=== PATIENT | male | born 1955 | race Caucasian/White ===

== ENCOUNTER 2023-11-10 06:30 | Inpatient (IN) | payer OTHER ==
[~2023-11-10] VITALS: Ht 177.8 cm; Wt 81.4 kg
[2023-11-10] VITALS (9 sets, daily range): BP systolic 132–150; PULSE 92–100; RESP 16–20; TEMP 96.7–98.5; O2SAT 94–99
[2023-11-10 07:12] LABS: BASOPHILS % (AUTO) 0.1 % (0.0-2.0); EOSINOPHILS % (AUTO) 0.2 % (0.0-4.0); HEMATOCRIT 40.1 % (36-54); HEMOGLOBIN 13.6 g/dL (14.0-18.0); LYMPHOCYTES # (AUTO) 0.2 K/uL (1.0-5.5); LYMPHOCYTES % (AUTO) 1.2 % (20.5-51.5); MEAN CORPUSCULAR HEMOGLOBIN 32 pg (27-31); MEAN CORPUSCULAR HGB CONC 34 % (32-36); MEAN CORPUSCULAR VOLUME 94 fL (79.0-98.0); MONOCYTES # (AUTO) 0.4 K/uL (0.0-1.0); MONOCYTES % (AUTO) 2.3 % (1.7-9.3); NEUTROPHILS # (AUTO) 16.2 K/uL (1.8-7.7); NEUTROPHILS % (AUTO) 96.2 % (40.0-70.0); PLATELET COUNT (AUTO) 119 K/uL (130-430); RED BLOOD CELL COUNT(AUTO) 4.28 MIL/uL (4.2-6.2); RED CELL DISTRIBUTION WIDTH 15.6 % (9.0-15.0); WHITE BLOOD COUNT (AUTO) 16.8 K/uL (4.8-10.8)
[2023-11-10 07:23] LABS: PROTHROMBIN TIME 10.4 SECS (9.5-12.5)
[2023-11-10 07:45] LABS: ALANINE AMINOTRANSFERASE 91 U/L (12-78); ANION GAP 13 (5-15); ASPARTATE AMINOTRANSFERASE 72 U/L (10-37); CALCIUM 9.2 mg/dL (8.4-11.0); CARBON DIOXIDE 22 mmol/L (23-29); CHLORIDE 103 mmol/L (98-107); CREATININE 1.31 mg/dL (0.55-1.30); GLUCOSE 165 mg/dL (74-106); POTASSIUM 3.4 mmol/L (3.5-5.1); SODIUM SERUM 138 mmol/L (136-145); TOTAL BILIRUBIN 0.9 mg/dL (0.0-1.0); TOTAL PROTEIN, SERUM 7.1 g/dL (6.4-8.3); UREA NITROGEN, BLOOD 36 mg/dL (8-21)
[2023-11-10 07:46] LABS: GFR AFRICAN AMERICAN 70 mL/min (>90); GFR NON AFRICAN-AMERICAN 57 mL/min (>90)
[2023-11-10 07:52] LABS: BILIRUBIN,DIRECT 0.3 mg/dL (0.0-0.3); CREATINE KINASE, TOTAL 30 U/L (39-308); FREE T4 (FREE THYROXINE) 0.5 ng/dl (0.8-1.5); LIPASE 223 U/L (16-77); THYROID STIMULATING HORMONE 14.51 uIu/mL (0.36-3.74)
[2023-11-10 08:09] LABS: ACETONE, SERUM NEGATIVE (NEGATIVE)
[2023-11-10] MEDS: MAG HYDROX/AL HYDROX/SIMETH 30 ML, DICYCLOMINE HCL 20 MG, LIDOCAINE VISCOUS 2% 15ML (PO... PO ONE (08:19)
[2023-11-10] MEDS ORDERED: cefTRIAXone 1 GM VIAL ONE (08:25)
[2023-11-10] MEDS: cefTRIAXone 1 GM in D5W 50 ML IV ONE (08:37)
[2023-11-10 09:00] LABS: BILIRUBIN,URINE NEGATIVE (NEGATIVE); CLARITY/URINE CLEAR (CLEAR); COLOR,URINE YELLOW (YELLOW); GLUCOSE,URINE NEGATIVE (NEGATIVE); KETONES,URINE NEGATIVE (NEGATIVE); LEUKOCYTE ESTERASE ,URINE NEGATIVE (NEGATIVE); NITRITE, URINE NEGATIVE (NEGATIVE); PROTEIN URINE NEGATIVE (NEGATIVE); UROBILINOGEN,URINE 0.2 (0.2-1.0)
[2023-11-10 09:01] LABS: BLOOD, URINE TRACE (NEGATIVE)
[2023-11-10 09:10] LABS: BACTERIA,URINE None Seen /HPF (None Seen); WBC,URINE 0-3 /HPF (0-3)
[2023-11-10] MEDS: NACL 0.9% 1,000 ML IV ONE (10:08)
[2023-11-10] MEDS ORDERED: ACETAMINOPHEN 325 MG TABLET PO PRN (10:15)
[2023-11-10] MEDS: MORPHINE 2 MG/ML INJ. SYRINGE IVP ONE (10:48)
[2023-11-10] MEDS: ALBUTEROL SULFATE 0.083% 2.5 MG/3 ML VIAL.NEB INH SCH (11:00)
[2023-11-10] MEDS: IPRATROPIUM BROM 0.5 MG/2.5 ML VIAL.NEB (ATROVENT) INH SCH (11:00)
[2023-11-10] MEDS ORDERED: NOR10 PO (11:43)
[2023-11-10] MEDS ORDERED: DEC4 PO (11:43)
[2023-11-10] MEDS ORDERED: ONDA-8 TL (11:43)
[2023-11-10] MEDS: MORPHINE 4 MG INJ. 4 MG/ML VIAL IVP PRN (13:14)
[2023-11-10] MEDS: D5/0.45 NS 1,000 ML IV ONE (13:23)
[2023-11-10] MEDS: PIPERACILLIN/TAZO 2.25G/DEX-IS 50 ML IV SCH (13:23)
[2023-11-10] MEDS: NACL 0.9% 1,000 ML IV SCH (19:38)
[2023-11-10] MEDS: HYDROcodone/ACETAMIN 5-325 MG TAB (NORCO/ VICODIN) PO PRN (22:10)
[2023-11-11] VITALS (12 sets, daily range): BP systolic 128–150; PULSE 94–101; RESP 15–18; TEMP 97.2–98.9; O2SAT 94–99
[2023-11-11 06:20] LABS: BASOPHILS % (AUTO) 0.1 % (0.0-2.0); EOSINOPHILS % (AUTO) 0.7 % (0.0-4.0); HEMATOCRIT 39.6 % (36-54); HEMOGLOBIN 13.3 g/dL (14.0-18.0); LYMPHOCYTES # (AUTO) 0.1 K/uL (1.0-5.5); LYMPHOCYTES % (AUTO) 1.6 % (20.5-51.5); MEAN CORPUSCULAR HEMOGLOBIN 32 pg (27-31); MEAN CORPUSCULAR HGB CONC 34 % (32-36); MEAN CORPUSCULAR VOLUME 95 fL (79.0-98.0); MONOCYTES # (AUTO) 0.3 K/uL (0.0-1.0); MONOCYTES % (AUTO) 5.4 % (1.7-9.3); NEUTROPHILS # (AUTO) 5.3 K/uL (1.8-7.7); NEUTROPHILS % (AUTO) 92.2 % (40.0-70.0); PLATELET COUNT (AUTO) 61 K/uL (130-430); RED BLOOD CELL COUNT(AUTO) 4.17 MIL/uL (4.2-6.2); WHITE BLOOD COUNT (AUTO) 5.8 K/uL (4.8-10.8)
[2023-11-11 06:37] LABS: ALBUMIN 2.6 g/dL (3.4-4.8); CALCIUM 8.4 mg/dL (8.4-11.0); CREATININE 1.3 mg/dL (0.55-1.30); POTASSIUM 3.6 mmol/L (3.5-5.1); TOTAL PROTEIN, SERUM 6.3 g/dL (6.4-8.3)
[2023-11-11] MEDS: cefTRIAXone 1 GM in D5W 50 ML IV SCH (10:05)
[2023-11-11] MEDS: PANTOPRAZOLE SODIUM 40 MG/VIAL (PROTONIX) IVP SCH (10:08)
[2023-11-11] MEDS: metroNIDAZOLE 500 mg/NS 100 ML IV SCH (13:53)
[2023-11-12] VITALS (11 sets, daily range): BP systolic 114–135; PULSE 90–101; RESP 16–18; TEMP 97.2–98.5; O2SAT 95–98
[2023-11-12 13:30] LABS: HEMATOCRIT 42.9 % (36-54); HEMOGLOBIN 14.4 g/dL (14.0-18.0); MEAN CORPUSCULAR HEMOGLOBIN 32 pg (27-31); MEAN CORPUSCULAR HGB CONC 34 % (32-36); MEAN CORPUSCULAR VOLUME 95 fL (79.0-98.0); RED BLOOD CELL COUNT(AUTO) 4.52 MIL/uL (4.2-6.2); RED CELL DISTRIBUTION WIDTH 15.8 % (9.0-15.0); WHITE BLOOD COUNT (AUTO) 3.8 K/uL (4.8-10.8)
[2023-11-12 13:49] LABS: ALBUMIN 2.5 g/dL (3.4-4.8); CALCIUM 8.5 mg/dL (8.4-11.0); CREATININE 1.52 mg/dL (0.55-1.30); POTASSIUM 3.5 mmol/L (3.5-5.1); TOTAL BILIRUBIN 1.3 mg/dL (0.0-1.0); TOTAL PROTEIN, SERUM 6.6 g/dL (6.4-8.3)
[2023-11-12 14:14] LABS: PLATELET COUNT (AUTO) 26 K/uL (130-430)
[2023-11-12 14:18] LABS: ATYPICAL LYMPHOCYTES % 1 % (0-0); BAND % (MANUAL) 20 % (0-6); BASOPHILS % (MANUAL) 0 % (0-2); EOSINOPHILS % (MANUAL) 0 % (0-7); LYMPHOCYTES % (MANUAL) 7 % (20-46); MONOCYTES % (MANUAL) 6 % (0-11)
[2023-11-12 14:19] LABS: METAMYELOCYTES % 2 % (0-0); PLATELET ESTIMATE DECREASED (ADEQUATE)
[2023-11-12] MEDS: ONDANSETRON HCL 4 MG/2 ML VIAL IVP PRN (23:27)
[2023-11-13] VITALS (22 sets, daily range): BP systolic 76–138; PULSE 85–121; RESP 12–20; TEMP 97.5–98.7; O2SAT 91–100
[2023-11-13 07:48] LABS: ALBUMIN 2.1 g/dL (3.4-4.8); CALCIUM 8.2 mg/dL (8.4-11.0); CREATININE 1.47 mg/dL (0.55-1.30); PHOSPHORUS 3.6 mg/dL (2.7-4.5); POTASSIUM 3.9 mmol/L (3.5-5.1); TOTAL BILIRUBIN 2.4 mg/dL (0.0-1.0); TOTAL PROTEIN, SERUM 5.3 g/dL (6.4-8.3)
[2023-11-13 07:49] LABS: BASOPHILS % (AUTO) 0.3 % (0.0-2.0); EOSINOPHILS % (AUTO) 0.2 % (0.0-4.0); HEMATOCRIT 44.8 % (36-54); LYMPHOCYTES # (AUTO) 0.2 K/uL (1.0-5.5); LYMPHOCYTES % (AUTO) 5.4 % (20.5-51.5); MEAN CORPUSCULAR HEMOGLOBIN 32 pg (27-31); MEAN CORPUSCULAR HGB CONC 34 % (32-36); MEAN CORPUSCULAR VOLUME 95 fL (79.0-98.0); MONOCYTES # (AUTO) 0.2 K/uL (0.0-1.0); MONOCYTES % (AUTO) 6.1 % (1.7-9.3); RED BLOOD CELL COUNT(AUTO) 4.71 MIL/uL (4.2-6.2); RED CELL DISTRIBUTION WIDTH 15.7 % (9.0-15.0); WHITE BLOOD COUNT (AUTO) 3.5 K/uL (4.8-10.8)
[2023-11-13 08:37] LABS: PLATELET COUNT (AUTO) 12 K/uL (130-430)
[2023-11-13] MEDS: METHYLPREDNISOLONE SOD SUCC 40 MG/ML VIAL IVP SCH (17:21)
[2023-11-13] MEDS: SUCRALFATE 1 GM TABLET PO SCH (17:21)
[2023-11-13] MEDS ORDERED: NOREPINEPHRINE BITARTRATE 4 MG in D5W 246 ML IV PRN ×2 (22:00→22:15)
[2023-11-13] MEDS ORDERED: PIPERACILLIN/TAZOBACTAM 3.375 GM/VIAL (ZOSYN) IV ONE (23:04)
[2023-11-13] MEDS: PIPERACILLIN/TAZO 3.375 GM in D5W 50 ML IV SCH (23:09)
[2023-11-13] MEDS: NACL 0.9% 1,000 ML IV ONE (23:09)
[2023-11-14] VITALS (27 sets, daily range): BP systolic 82–153; PULSE 81–108; RESP 11–19; TEMP 96.9–98.6; O2SAT 90–100
[2023-11-14] MEDS: ACETAMINOPHEN 325 MG TABLET PO PRN (00:15)
[2023-11-14 05:10] LABS: BASOPHILS % (AUTO) 0.6 % (0.0-2.0); EOSINOPHILS % (AUTO) 0.1 % (0.0-4.0); HEMATOCRIT 39.5 % (36-54); HEMOGLOBIN 13.3 g/dL (14.0-18.0); LYMPHOCYTES # (AUTO) 0.4 K/uL (1.0-5.5); LYMPHOCYTES % (AUTO) 12.5 % (20.5-51.5); MEAN CORPUSCULAR HEMOGLOBIN 32 pg (27-31); MEAN CORPUSCULAR HGB CONC 34 % (32-36); MEAN CORPUSCULAR VOLUME 95 fL (79.0-98.0); MONOCYTES # (AUTO) 0.2 K/uL (0.0-1.0); MONOCYTES % (AUTO) 4.7 % (1.7-9.3); NEUTROPHILS # (AUTO) 2.7 K/uL (1.8-7.7); NEUTROPHILS % (AUTO) 82.1 % (40.0-70.0); RED BLOOD CELL COUNT(AUTO) 4.14 MIL/uL (4.2-6.2); RED CELL DISTRIBUTION WIDTH 16.1 % (9.0-15.0); WHITE BLOOD COUNT (AUTO) 3.3 K/uL (4.8-10.8)
[2023-11-14 05:19] LABS: INR 1.2 (0.80-1.20); PROTHROMBIN TIME 12.7 SECS (9.5-12.5)
[2023-11-14 05:53] LABS: ALBUMIN 1.8 g/dL (3.4-4.8); CALCIUM 7.8 mg/dL (8.4-11.0); CREATININE 3.41 mg/dL (0.55-1.30); POTASSIUM 4.1 mmol/L (3.5-5.1); TOTAL BILIRUBIN 2.8 mg/dL (0.0-1.0); TOTAL PROTEIN, SERUM 4.6 g/dL (6.4-8.3)
[2023-11-14 06:25] LABS: PLATELET COUNT (AUTO) 19 K/uL (130-430)
[2023-11-14] MEDS: IPRATROPIUM/ALBUTEROL SULFATE 3 ML AMPUL.NEB (DUONEB) INH ONE (11:41)
[2023-11-14] MEDS: IPRATROPIUM/ALBUTEROL SULFATE 3 ML AMPUL.NEB (DUONEB) INH SCH (15:00)
[2023-11-14] MEDS: PHYTONADIONE 10 MG/ML AMP IM ONE (19:24)
[2023-11-15] VITALS (13 sets, daily range): BP systolic 86–132; PULSE 97–128; RESP 12–30; TEMP 97.1–97.4; O2SAT 84–99
[2023-11-15 06:39] LABS: ALBUMIN 1.9 g/dL (3.4-4.8); BILIRUBIN,DIRECT 2.8 mg/dL (0.0-0.3); CALCIUM 7.8 mg/dL (8.4-11.0); CREATININE 5.12 mg/dL (0.55-1.30); PHOSPHORUS 9.3 mg/dL (2.7-4.5); POTASSIUM 4.2 mmol/L (3.5-5.1); TOTAL BILIRUBIN 3.3 mg/dL (0.0-1.0)
[2023-11-15 06:47] LABS: HEMATOCRIT 43.2 % (36-54); HEMOGLOBIN 14.2 g/dL (14.0-18.0); MEAN CORPUSCULAR HEMOGLOBIN 32 pg (27-31); MEAN CORPUSCULAR HGB CONC 33 % (32-36); MEAN CORPUSCULAR VOLUME 97 fL (79.0-98.0); RED BLOOD CELL COUNT(AUTO) 4.46 MIL/uL (4.2-6.2); RED CELL DISTRIBUTION WIDTH 16.8 % (9.0-15.0)
[2023-11-15 07:31] LABS: PLATELET COUNT (AUTO) 39 K/uL (130-430)
[2023-11-15] MEDS ORDERED: DEXTROSE 50% JECT 50 ML DISP.SYRIN IVP PRN (08:45)
[2023-11-15] MEDS ORDERED: INSULIN LISPRO SLIDING SCALE 100 UNITS/ML, 3 ML VIAL (humaLOG) SUBCUT PRN (08:45)
[2023-11-15] MEDS ORDERED: DOPamine PREMIX 250 ML IV ONE (09:19)
[2023-11-15 09:22] LABS: ATYPICAL LYMPHOCYTES % 2 % (0-0); BAND % (MANUAL) 15 % (0-6); BASOPHILS % (MANUAL) 0 % (0-2); EOSINOPHILS % (MANUAL) 0 % (0-7); LYMPHOCYTES % (MANUAL) 8 % (20-46); METAMYELOCYTES % 2 % (0-0); MONOCYTES % (MANUAL) 9 % (0-11)
[2023-11-15 09:23] LABS: ANISOCYTOSIS 1+
[2023-11-15 09:26] LABS: PLATELET ESTIMATE DECREASED (ADEQUATE)
[2023-11-15] MEDS ORDERED: AMIODARONE HCL 150 MG/3ML VIAL ONE (12:25)
[2023-11-15] MEDS ORDERED: METHYLPREDNISOLONE SOD SUCC 40 MG/ML VIAL IVP SCH (14:00)
== END 2023-11-15 20:56 | DRG 871 ==
LOC: SED 06:30 → SMU 10:02 → SIC 11-13 17:01
PROVIDERS: ADMIT Family Medicine; ATTEND Family Medicine
PROC: 30233R1 Transfusion of Nonautologous Platelets into Peripheral Vein, Percutaneous Approach (ICD-10-PCS; principal; 2023-11-13)
PROC: 5A12012 Performance of Cardiac Output, Single, Manual (ICD-10-PCS; 2023-11-15)
DX: A41.9 Sepsis, unspecified organism (principal); K72.00 Acute and subacute hepatic failure without coma; K76.7 Hepatorenal syndrome; K85.90 Acute pancreatitis without necrosis or infection, unspecified; R65.21 Severe sepsis with septic shock; E44.0 Moderate protein-calorie malnutrition; N17.9 Acute kidney failure, unspecified; K56.7 Ileus, unspecified; C16.9 Malignant neoplasm of stomach, unspecified; K21.9 Gastro-esophageal reflux disease without esophagitis; D69.6 Thrombocytopenia, unspecified; E03.9 Hypothyroidism, unspecified; N40.0 Benign prostatic hyperplasia without lower urinary tract symptoms; N18.9 Chronic kidney disease, unspecified; Z68.25 Body mass index [BMI] 25.0-25.9, adult; Z79.899 Other long term (current) drug therapy
CPT/HCPCS: 36415; 71045; 74181; 76700; 78226; 80048; 80053; 80076; 81000; 81001; 81015; 82009; 82248; 82550; 82948; 83010; 83605; 83615; 83690; 83735; 84100; 84439; 84443; 84484; 85007; 85025; 85027; 85384; 85610; 85730; 86900; 86901; 87040; 92950; 93005; 94002; 94070; 94640; 94760; 96361; 96365; 96375; 99285; A9537; J0171; J0282; J0461; J0696; J1030; J1265; J2001; J2270; J2405; J2470; J2543; J3430; J3490; J7060; P9034